=== PATIENT | male | born 1980 | race Caucasian/White ===

== ENCOUNTER 2016-11-05 10:33 | Emergency (ER) | payer SELFPAY ==
[~2016-11-05] VITALS: Ht 167.6 cm; Wt 94.6 kg
[2016-11-05 10:36] VITALS: BP 158/104; PULSE 94; RESP 15; TEMP 98.4; O2SAT 99
--- NOTE | 2016-11-05 10:47 | PD ---
HPI Chief Complaint: Injury Time Seen by Provider: 10:42 Travel History International Travel<30 days: No Contact w/Intl Traveler<30days: No Traveled to known affect area: No History of Present Illness HPI 28-year-old male here with complaint of right hand pain. Patient punched concrete 5 days ago. Since he has noticed pain and swelling to the lateral aspect of the hand. Patient states that it hurts to move. He is noted associated swelling is been taking ibuprofen and icing it which has helped some but his symptoms have not resolved prompting ER visit. Patient is right-hand dominant. [facility] Past Medical History Medical History: Denies Significant Hx ?: Not Past Surgical History Surgical History: No Previous Surgery Social History Alcohol Use: No Tobacco Use: No Substance Use: No Allergies-Medications (Allergen,Severity, Reaction): Coded Allergies: No Known Allergies (Verified , 11/05/16) Reported Meds & Prescriptions Reported Meds & Active Scripts Active No Active Prescriptions or Reported Medications Review of Systems General / Constitutional: No: Fever Cardiovascular: No: Chest Pain or Discomfort Respiratory: No: Shortness of Breath Musculoskeletal: Positive: Edema, Pain Skin: No Rash Physical Exam Narrative GENERAL: Well-appearing man in no acute distress SKIN: Focused skin assessment warm/dry. HEAD: Normocephalic. CARDIOVASCULAR: Regular rate and rhythm. RESPIRATORY: No accessory muscle use. GASTROINTESTINAL: Obese MUSCULOSKELETAL: The right hand with swelling most notably over the fourth and fifth metacarpal ray with possible step-off deformity of the fifth. Patient is able to move the fingers and the hand with full function though does have decreased expediter strength on the right. NEUROLOGICAL: Awake and alert. Normal speech. PSYCHIATRIC: Appropriate mood and affect; insight and judgment normal. Data Data Last Documented VS Vital Signs Date Time Temp Pulse Resp B/P Pulse Ox O2 Delivery O2 Flow Rate FiO2 11/05/16 10:36 98.4 94 15 158/104 99 Orders Hand, Complete ([id number]) (11/05/16 ) Support Splint (11/05/16 11:06) [facility] Medical Decision Making Medical Screen Exam Complete: Yes Emergency Medical Condition: Yes Medical Record Reviewed: Yes Differential Diagnosis 36-year-old male with right hand pain and swelling 5 days since punching concrete. Differential includes fracture, dislocation, sprain. Narrative Course X-ray of the right hand obtained that by my read shows slightly displaced fracture of the fifth metacarpal. Patient was placed in ulnar gutter splint and will be discharged home with hand surgery follow-up. Diagnosis Primary Impression: Boxers fracture Qualified Code: S62.309A - Boxers fracture, closed, initial encounter Referrals: Genevieve Luis MD call for appointment Hand Surgeon call for appointment Additional Instructions: Tylenol, ibuprofen as needed for pain. Follow-up with hand surgeon as discussed. Med/Other Pt SpecificInfo: No Change to Meds Scripts No Active Prescriptions or Reported Meds Disposition: 01 DISCHARGE HOME Condition: Stable Alexandria Marie MD Nov 05, 2016 10:47
--- NOTE | 2016-11-05 11:14 | RADHPO ---
EXAM DATE/TIME: 11/05/2016 10:47 [facility] COMPARISON: No previous studies available for comparison. INDICATIONS : Hit right hand on ground while using a prybar MEDICAL HISTORY : None. SURGICAL HISTORY : None. ENCOUNTER: Initial ACUITY: 4 - 6 days PAIN SCORE: 4/10 LOCATION: Right hand FINDINGS: There is a fracture of the fifth metacarpal bone with slight angulation volarly. CONCLUSION: Fifth metacarpal fracture. Ismael Lr MD on November 05, 2016 at 11:12 Board Certified Radiologist. This report was verified electronically.
== END 2016-11-05 11:55 | disposition home or self-care (01) ==
LOC: PHED 10:33
DX: S62.306A Unspecified fracture of fifth metacarpal bone, right hand, initial encounter for closed fracture (principal); W22.09XA Striking against other stationary object, initial encounter
CPT/HCPCS: 29125; 73130